=== PATIENT | male | born 1945 | race Caucasian/White ===

== ENCOUNTER → 2016-12-07 | Outpatient (CLI) | payer OTHER ==
--- NOTE | 2016-12-07 14:15 | RAD ---
Ventilation/perfusion lung scan, 12/07/2016: History: Dyspnea The ventilation study was performed utilizing 9 mCi of xenon-133. Activity within the lungs is mildly heterogeneous. There is good washout of the xenon from the lungs. Perfusion images were then obtained following IV injection of 5.5 mCi of technetium 99m MAA. A similar pattern of activity is present in the lungs. No significant unmatched or segmental perfusion defects are seen. IMPRESSION: There are no VQ findings to suggest pulmonary emboli. .
--- NOTE | 2016-12-07 14:18 | RAD ---
Chest, 2 views, 12/07/2016: History: Dyspnea There has been a previous median sternotomy. A left-sided transvenous pacemaker is in place with a single lead extending into the right ventricle. The heart is at the upper limits of normal in size. There is tortuosity of the thoracic aorta. A linear parenchymal opacity in the right upper lobe is probably a scar. Pleural thickening over the left apex is also probably due to scarring. No pulmonary consolidation is seen. There is no evidence of pleural fluid. Several lower thoracic vertebral compression fractures are noted, of indeterminate ages. There are mild scattered spurs in the spine. IMPRESSION: 1. Borderline cardiomegaly. 2. Bilateral apical pleural-parenchymal scarring. 3. Lower thoracic vertebral compression fractures of indeterminate ages.
== END | disposition home or self-care (01) ==
LOC: NM 12:14
PROVIDERS: ATTEND Internal Medicine
DX: I11.0 Hypertensive heart disease with heart failure (principal); Z95.0 Presence of cardiac pacemaker; R06.00 Dyspnea, unspecified
CPT/HCPCS: 71020; 78582; 96374; A9540; A9558

== ENCOUNTER 2020-10-14 11:37 | Inpatient (IN) | payer OTHER ==
[~2020-10-14] VITALS: Ht 167.6 cm; Wt 80.1 kg
--- NOTE | 2020-10-14 11:53 | PHYS DOC ---
Past History Past Medical History Heart failure, folate deficiency, thrombocytopenia, diabetes mellitus, hyperlipidemia, cataracts, atherosclerosis, A. fib, carotid artery stenosis, dyspepsia, osteoporosis, chronic kidney disease stage III, peripheral vascular disease. Past Surgical History: Coronary Bypass Surgery, Pacemaker Alcohol Use: None Drug Use: None General Adult EDM: Chief Complaint: MECHANICAL FALL HPI: HPI: This is a pleasant 75-year-old male who is on warfarin who presents emergency department after leaning over to reach for his urinary catheter when he fell and hit the left frontal part of his head. They were unsure if he lost consciousness. He denies chest pain but does have a headache. He denies vomiting fevers or chills. He denies slurred speech, facial droop, or numbness weakness or tingling. He denies any other injuries. He has a history of a CABG and a pacemaker placement. He denies any injury to his arms or legs. He denies hip pain. He denies difficulty breathing or shortness of breath. He has a chronic cough and is on baseline oxygen levels about 4 L/min. Review of systems negative for neck pain nuchal rigidity back pain focal neurologic deficit. Positive for headache. Negative for chest pain shortness of breath. All other review of systems negative. ED course: 75-year-old male presenting after head injury on Coumadin. On arrival the patient is mildly hypotensive however paramedics report that this is the patient's baseline blood pressure. The patient is not tachycardic. He is well-appearing and opens his eyes spontaneously he is alert with a normal neurologic exam. CBC shows a mild anemia of 10. White blood cell count within normal limits. Chemistry panel shows a creatinine of 4.1 which is increased from the patient's baseline. Troponin within normal limits. INR of 1.6. Urinalysis shows nitrites. IV Zosyn given for treatment of UTI. Patient clinically is volume overloaded. We will begin IV diuresis. I spoke with both the hospitalist at [facility] and [facility]. It was decided that [facility] would be able to care for the patient because the patient is not acidotic and not hyperkalemic. We will initiate diuresis and if unsuccessful we can transfer to [facility] for nephrology consultation. I spoke to Dr. Mcnally who accepts patient for admission. Physical Exam: PE: Constitutional: Well developed, well nourished, no acute distress, non-toxic appearance. [] HENT: Normocephalic, patient has an abrasion to the anterior forehead with an area of swelling. No laceration. No palpable depressed skull fracture., bilateral external ears normal, oropharynx moist, no oral exudates, nose normal. [] Eyes: PERRLA, EOMI, conjunctiva normal, no discharge. [] Neck: Normal range of motion, no tenderness, supple, no stridor. [] No midline tenderness. Back: Nontender midline. No abrasions lacerations or ecchymosis. No step-offs. Cardiovascular:Heart rate regular rhythm, no murmur [] Lungs & Thorax: Bilateral breath sounds clear to auscultation [] atraumatic. No crepitus. Abdomen: Bowel sounds normal, soft, no tenderness, no masses, no pulsatile masses. [] Skin: Warm, dry, no erythema, no rash. [] Back: No tenderness, no CVA tenderness. [] Extremities: No tenderness, no cyanosis, no clubbing, ROM intact, no edema. Neurovascular intact. Palpable pulse. 2-second cap refill. Normal range of motion of the joints. Neurologic: Mental status: Awake oriented and alert x3 Cranial nerves: Extraocular movements intact, eyebrows yvonne bilaterally, smile symmetric, uvula elevation nl, shoulder shrug intact bilaterally, tongue protrusion normal Clear speech. no drift. Sensation: equal and normal in all extremities Strength: 5/5 in upper and lower extremities bilaterally Psychologic: Affect normal, judgement normal, mood normal. [] EKG: EKG: [] EKG reviewed by myself shows a paced rhythm with repolarization. Negative scarbosa. Radiology/Procedures: Radiology/Procedures: [] Heart Score: Risk Factors: Risk Factors: DM, Current or recent (<one month) smoker, HTN, HLP, family history of CAD, obesity. Risk Scores: Score 0 - 3: 2.5% MACE over next 6 weeks - Discharge Home Score 4 - 6: 20.3% MACE over next 6 weeks - Admit for Clinical Observation Score 7 - 10: 72.7% MACE over next 6 weeks - Early Invasive Strategies Course & Med Decision Making: Course & Med Decision Making Pertinent Labs and Imaging studies reviewed. (See chart for details) [] Dragon Disclaimer: Dragon Disclaimer: This electronic medical record was generated, in whole or in part, using a voice recognition dictation system. Departure Departure: Impression: Primary Impression: Fall Additional Impressions: Head trauma Cardiorenal syndrome [id number] kidney injury Volume overload Disposition: ADMITTED INPT THIS HOSP Admitting Physician: Danilo Mcnally Condition: GUARDED Referrals: TIFFANY ANDRE (PCP) Critical Care Time Critical care time spent was 45 minutes exclusive of procedures. Time was spent evaluating the patient, ordering the administration of medications, reevaluating the patient, discussing with the admitting provider and documenting. GABY REINA MD Oct 14, 2020 11:53
--- NOTE | 2020-10-14 12:42 | RAD ---
XR CHEST 1V 10/14/2020 12:12 PM INDICATION: Fall COMPARISON: 12/07/2016 TECHNIQUE: Portable frontal view of the chest is provided. FINDINGS: The cardiomediastinal silhouette is similar in appearance. Left chest wall cardiac device is identifi ed with leads projecting over the right ventricle. Median sternotomy changes are present. Trace right pleural effusion with adjacent compressive atelectasis versus infiltrate. Mild pulmonary vascular congestion. No pneumothorax. No suspicious osseous abnormality. IMPRESSION: Increase in trace right pleural effusion and mild pulmonary vascular congestion as may be seen with c ongestive heart failure. Cardiomegaly may be associated with cardiomyopathy versus pericardial effusi on. Electronically signed by: Iliana Peralta MD (10/14/2020 12:40 PM) HEMA
--- NOTE | 2020-10-14 12:50 | RAD ---
PQRS Compliance Statement: One or more of the following individualized dose reduction techniques were utilized for this examinat ion: 1. Automated exposure control 2. Adjustment of the mA and/or kV according to patient size 3. Use of iterative reconstruction technique CT head and cervical spine without contrast 10/14/2020 12:12 PM INDICATION: Head trauma COMPARISON: None available TECHNIQUE: Multiple axial CT images of the head were obtained from skull base through the vertex with out intravenous contrast. Multiple axial CT images of the cervical spine were obtained without intrav enous contrast. Coronal and sagittal reformats are provided. FINDINGS: Head: Evaluation degraded by motion artifact. Ventricles, sulci and basal cisterns are prominent compatible with generalized cerebral volume loss. Low-attenuation in the periventricular white matter is suggestive of chronic small vessel ischemic ch anges. There is no hydrocephalus. Dumont-white matter differentiation is normal. There is no acute intr acranial hemorrhage. There is no mass, mass effect or midline shift. Posterior fossa is normal in taryn earance. Visualized portions of the orbits are normal. Air-fluid level identified within the right sphenoid si nus. Mastoid air cells are well aerated. Scalp and calvaria are normal. Cervical spine: Evaluation degraded by motion artifact. Alignment of the cervical spine is normal. Skull base is intact. Craniocervical junction is normal in appearance. Atlantoaxial articulation is normal. Vertebral body heights are maintained without evidence for acute fracture. There is moderate disc height loss at C5-C6 and C6-C7. C6-C7, there is a posterior disc osteophyte co mplex resulting in mild spinal canal stenosis. There is no prevertebral soft tissue swelling. Thyroid gland is normal in appearance. There is right apical pleural parenchymal scarring. Interstitial changes identified the lung apices. There may be a tiny loculated pneumothorax along the medial right upper lobe, although motion artifact could result in superimposition of the trachea this region. IMPRESSION: Evaluation of the head and cervical spine limited by motion artifact. 1. No acute intracranial hemorrhage. Mild generalized cerebral volume loss. Low-attenuation in the pe riventricular white matter is suggestive of chronic small vessel ischemic changes. 2. Given limitations of motion artifact, now acute fracture or malalignment of the cervical spine. Mi ld cervical spondylosis. 3. There is right apical pleural parenchymal scarring. Interstitial changes identified the lung apice s. There may be a tiny loculated pneumothorax along the medial right upper lobe, although motion breonna fact could result in superimposition of the trachea this region. 4. Air-fluid level identified within the right sphenoid sinus. Correlate with any signs and symptoms of sinusitis. Electronically signed by: Iliana Peralta MD (10/14/2020 12:48 PM) [place] [facility]
--- NOTE | 2020-10-14 13:00 | RAD ---
Pelvis single view INDICATION: Fall COMPARISON: None. FINDINGS: Intact pelvic ring. No acute fracture or hip dislocation is apparent. There is surgical material proj ecting over the left lower pelvic soft tissues suggesting previous hernia repair. Arteriovascular colton cifications are also noted. IMPRESSION: No fracture or dislocation in the pelvis or hips on single view pelvis. Electronically signed by: Efrain Thomas MD (10/14/2020 12:57 PM) [id number]
--- NOTE | 2020-10-14 13:12 | EKG ---
[facility] ED [facility] [address] [place] [id number] Test Date: 2020-10-14 Test Time: 11:54:03 Pat Name: SANDY MARTINEZ Department: Room: Gender: M Solution Mixer: : 1945 Requested By: GABY REINA Order Number: [id number] Reading MD: Slade Baumann Measurements Intervals [place] Rate: 70 P: MI: QRS: 265 QRSD: 232 T: 101 QT: 480 QTc: 522 Interpretive Statements VENTRICULAR PACED RHYTHM Electronically Signed On 10-17-2020 10:16:39 WOOD FILLER by Slade Baumann
[2020-10-14 13:22] LABS: BASO # 0.1 x10^3/uL (0.0-0.2); BASO % 1 % (0-3); EOS # 0.1 x10^3/uL (0.0-0.7); EOS % 1 % (0-3); HEMOGLOBIN 10.1 g/dL (13.0-17.5); LYMPH # 1.4 x10^3/uL (1.0-4.8); LYMPH % 19 % (24-48); MEAN CORPUSCULAR HEMOGLOBIN 25 pg (25-35); MEAN CORPUSCULAR HGB CONC 31 g/dL (31-37); MEAN CORPUSCULAR VOLUME 83 fL (79-100); MONO # 0.7 x10^3/uL (0.0-1.1); MONO % 9 % (0-9); NEUT # 5.3 x10^3uL (1.8-7.7); NEUT % 70 % (31-73); PLATELET COUNT 62 x10^3/uL (140-400); RED BLOOD COUNT 3.95 x10^6/uL (4.30-5.70); RED CELL DISTRIBUTION WIDTH 26.2 % (11.5-14.5); WHITE BLOOD COUNT 7.5 x10^3/uL (4.0-11.0)
[2020-10-14 13:32] LABS: CALCIUM 8.3 mg/dL (8.5-10.1); CREATININE 4.1 mg/dL (0.7-1.3); GFR 14.3
[2020-10-14 13:37] LABS: ALBUMIN 2.8 g/dL (3.4-5.0); DIRECT BILIRUBIN 0.2 mg/dL (0.0-0.2); TOTAL BILIRUBIN 0.5 mg/dL (0.2-1.0)
[2020-10-14 16:14] LABS: BILIRUBIN,URINE NEG (NEG); CLARITY,URINE HAZY; COLOR,URINE YELLOW; GLUCOSE,URINE NEG (NEG); NITRITE,URINE POS (NEG); UROBILINOGEN,URINE 0.2 mg/dL (0.2 mg/dL)
[2020-10-14 16:15] LABS: BACTERIA,URINE MANY /HPF (0-FEW); RBC,URINE TNTC /HPF (0-2); SQUAMOUS EPITHELIAL CELL,UR FEW /LPF
[2020-10-14] MEDS: FUROSEMIDE INJ 100 MG in IV NORMAL SALINE 100ML 90 ML IV PRN (17:09)
[2020-10-14] MEDS ORDERED: PIPERACILLIN/TAZOBACTAM 3.375 GM in IV NORMAL SALINE 50ML 50 ML IV ONE (18:00)
[2020-10-14] MEDS ORDERED: PIPERACILLIN/TAZOBACTAM 3.375 GM VIAL IV ONE (18:44)
[2020-10-14] MEDS ORDERED: IV NORMAL SALINE 50ML 50 ML ONE (18:44)
[2020-10-14 20:16] LABS: ANISOCYTOSIS SLIGHT; PLT ESTIMATE DECREASED (ADEQUATE)
[2020-10-14 20:17] LABS: PLATELET CLUMP PRESENT; POIKILOCYTOSIS SLIGHT
--- NOTE | 2020-10-14 21:31 | HP ---
ADMIT DATE: 10/14/2020 ATTENDING PHYSICIAN: Dr. Braswell. SUBJECTIVE: Fall and weakness. HISTORY OF PRESENT ILLNESS: The patient is a 75-year-old gentleman who has multiple medical issues. He normally doctors at the OR. He states that he has a physician ____. He presented to the ED. He fell leaning over, trying to get his urinary catheter. He bumped the front of his head. He is on Coumadin. He had a negative CT head without any bleeding. There is a longstanding history of coronary artery disease and permanent pacemaker. He has chronic kidney disease stage 5, with a creatinine of 4.1 mg percent. He is volume overloaded. He has peripheral edema extending all the way up to his thighs and his chest x-ray shows vascular congestion. There is a right pleural effusion, pulmonary vascular congestion, and cardiomegaly. They tried contacting the floor sweeper at [facility]. They did not feel he needed dialysis just yet. They contact me for admission. He will be in the ICU with attempt of Lasix drip to try to diurese him. PAST MEDICAL HISTORY: Significant for congestive heart failure, coronary artery disease, coronary artery bypass graft, chronic alcoholism, thrombocytopenia, type 2 diabetes, arterial sclerosis, paroxysmal atrial fibrillation, carotid artery stenosis, gastroesophageal reflux disease, and peripheral vascular disease. PAST SURGICAL HISTORY: CABG and permanent pacemaker, exact anatomy is unclear. He has very little insight. MEDICATIONS: Current medicines are reviewed. He was taking Coumadin. I am in the process of obtaining other medications. I do not have records from the [facility] Hospital at this time. SOCIAL HISTORY: He is a nonsmoker. He used to drink heavily. He is not drinking actively now. FAMILY HISTORY: Unobtainable. REVIEW OF SYSTEMS: Significant for the pedal edema. He has urinary retention. He has generalized debility and no COVID exposure. All other systems reviewed and determined negative. He denied any pruritus or nausea. He is chronically short of breath. PHYSICAL EXAMINATION: GENERAL: When I saw him, this is a chronically ill-appearing gentleman. INITIAL VITAL SIGNS: Showed a blood pressure 105/51, pulse is 70 and regular, temperature 97.5 degrees Fahrenheit, oxygen saturation 98% on 2 liters of nasal cannula. HEENT: Head is without trauma. Pupils are reactive. Sclerae nonicteric. Oropharynx is clear. NECK: Supple, no bruits. LUNGS: Bibasilar rales. CARDIOVASCULAR: Showed distant heart tones. No rubs, no gallops. ABDOMEN: Obese, protuberant. No organomegaly. EXTREMITIES: Showed 4+ pitting edema extending all the way up to his thighs. There is some skin breakthrough and serous drainage. SKIN: Otherwise, lower extremity as noted with some open sores and covered. No active infection identified. PERTINENT LABORATORY STUDIES: His baseline creatinine is 4.1 mg/dL, BUN 53. Anion gap is adequate, potassium 4.0 mEq. Cardiac enzymes negative for coronary ischemia. Hemoglobin is 10.1 g/dL with a white count of 7500. ASSESSMENT: 1. A 75-year-old gentleman with acute on chronic congestive heart failure. 2. Anasarca from volume overload. 3. Chronic kidney disease stage 5. 4. Known coronary artery disease with bypass graft. 5. Recent debilitation and fall. 6. Hemorrhagic stroke ruled out. 7. Chronic anticoagulation. 8. Generalized debilitation. PLAN: 1. Admit to the ICU. He remains a FULL CODE. 2. I will order a Lasix drip to help with diuresis. 3. Daily weights. 4. Fluid restriction. 5. I will hold his Coumadin for now. 6. Serial chemistries. 7. I shall ascertain his code status. 8. I am in the process of finding out exact medication and social issues for management. LOR BRASWELL MD DR: VALENTIN/alok JOB#: [id number] / [id number]
--- NOTE | 2020-10-14 21:45 | NUR ---
The patient, SANDY MARTINEZ, 75 y/o, M admitted by LOR BRASWELL MD, was given written information regarding hospital policies, unit procedures and contact persons. Valuables were checked and logged. Call light at bedside. Will continue to monitor.
[2020-10-14 22:11] VITALS: BP 93/51
[2020-10-14 23:13] VITALS: BP 84/49
--- NOTE | 2020-10-14 23:17 | NUR ---
Notified MD about low bp and no new orders ordered. Labs x 3 days ordered. Tramadol for pain. Will continue to monitor.
[2020-10-14] MEDS ORDERED: traMADol 50 MG TABLET PO PRN (23:30)
[2020-10-15] VITALS (24 sets, daily range): BP systolic 74–115; BP diastolic 41–64
[2020-10-15] MEDS: FUROSEMIDE INJ 100 MG in IV NORMAL SALINE 100ML 90 ML IV PRN ×3 (01:35→23:00)
--- NOTE | 2020-10-15 02:26 | NUR ---
Pt is in a cardiac chair. Pt states, "I feel much better." Call light by pt. Will continue to monitor.
[2020-10-15] MEDS ORDERED: ASPI-630 PO (03:04)
[2020-10-15] MEDS ORDERED: LISI2.5T PO (03:04)
[2020-10-15] MEDS ORDERED: BENZ1LOZ48 MM (03:04)
[2020-10-15] MEDS ORDERED: METO-239 PO (03:04)
[2020-10-15] MEDS ORDERED: MENT200L TP (03:04)
[2020-10-15] MEDS ORDERED: AMIO200T6 PO (03:04)
[2020-10-15] MEDS ORDERED: CETI10TA16 PO (03:04)
[2020-10-15] MEDS ORDERED: DIGO125T17 PO (03:04)
[2020-10-15] MEDS ORDERED: FERR325T14 PO (03:04)
[2020-10-15] MEDS ORDERED: ACET325T21 PO (03:04)
[2020-10-15] MEDS ORDERED: PREG75CA PO (03:48)
[2020-10-15] MEDS ORDERED: TIOT18CA IH (03:48)
[2020-10-15] MEDS ORDERED: NITR0.3T5 SL (03:48)
[2020-10-15] MEDS ORDERED: OMEP20CA16 PO (03:48)
[2020-10-15] MEDS ORDERED: CRESTOR40 MG PO (03:48)
[2020-10-15] MEDS ORDERED: MIRT7.5T8 PO (03:48)
[2020-10-15] MEDS ORDERED: ALBU2.5V8 INH (03:48)
[2020-10-15] MEDS ORDERED: TORS20TA2 PO (04:31)
[2020-10-15] MEDS ORDERED: TRAM50TA PO (04:31)
[2020-10-15] MEDS ORDERED: WARF1TAB69 PO (04:31)
[2020-10-15] MEDS ORDERED: ONDA4TAB7 PO (04:31)
[2020-10-15] MEDS ORDERED: BUDE10.2 IH (04:31)
[2020-10-15] MEDS ORDERED: PECT2.8L3 MM (04:31)
[2020-10-15] MEDS ORDERED: CHOL500021 PO (04:31)
[2020-10-15 07:03] LABS: ALBUMIN 2.8 g/dL (3.4-5.0); ALBUMIN/GLOBULIN RATIO 0.7 (1.0-1.7); CALCIUM 8.5 mg/dL (8.5-10.1); CREATININE 4.3 mg/dL (0.7-1.3); GFR 13.5; POTASSIUM 4.1 mmol/L (3.5-5.1); TOTAL BILIRUBIN 0.4 mg/dL (0.2-1.0); TOTAL PROTEIN 7.1 g/dL (6.4-8.2)
[2020-10-15 07:08] LABS: BASO # 0.1 x10^3/uL (0.0-0.2); BASO % 1 % (0-3); EOS # 0.1 x10^3/uL (0.0-0.7); EOS % 1 % (0-3); HEMATOCRIT 34.9 % (39.0-53.0); HEMOGLOBIN 10.5 g/dL (13.0-17.5); LYMPH # 1.6 x10^3/uL (1.0-4.8); LYMPH % 21 % (24-48); MEAN CORPUSCULAR HEMOGLOBIN 26 pg (25-35); MEAN CORPUSCULAR HGB CONC 30 g/dL (31-37); MEAN CORPUSCULAR VOLUME 85 fL (79-100); MONO # 0.8 x10^3/uL (0.0-1.1); MONO % 10 % (0-9); NEUT # 5.3 x10^3uL (1.8-7.7); NEUT % 67 % (31-73); PLATELET COUNT 60 x10^3/uL (140-400); RED BLOOD COUNT 4.12 x10^6/uL (4.30-5.70); RED CELL DISTRIBUTION WIDTH 26.1 % (11.5-14.5); WHITE BLOOD COUNT 7.9 x10^3/uL (4.0-11.0)
--- NOTE | 2020-10-15 09:10 | PN ---
DATE: 10/15/2020 ATTENDING PHYSICIAN: Dr. Braswell. SUBJECTIVE: He is dyspneic with minimal exertion. He has a knot on the left side of the neck, various achiness. He is still edematous, marginal urine output with the Lasix drip. Unfortunately, the gentleman has very little insight into his underlying condition. He is from a local correction. OBJECTIVE FINDINGS: VITAL SIGNS: Creatinine is slightly elevated today at 4.3 mg/dL from 4.1, blood pressure today is 83/50 mmHg, pulse 70 and regular, oxygen saturation 100% on 3 liters by nasal cannula. He is afebrile. HEENT: Head is without trauma. Pupils are reactive. Sclerae nonicteric. NECK: Supple. No stridor. He has some minimal torticollis on the left. LUNGS: Bibasilar rales. CARDIOVASCULAR: Showed regular heart tones. No rubs. ABDOMEN: Obese, protuberant. EXTREMITIES: Show 4+ edema extending up to his thighs. Hernandez catheter is in place. SKIN: Some weepage and breakage of his lower extremities. LABORATORY DATA: Potassium is 4.1 mEq, BUN 55. The anion gap is 9. Creatinine is up to 4.3 mg/dL, nonfasting blood sugar 124 mg/dL. Hemoglobin maintained at 10.5 g/dL with a white count of 7900. ASSESSMENT: 1. A 75-year-old gentleman [facility] patient with [id number] congestive heart failure. 2. Anasarca due to volume overload. 3. Chronic kidney disease stage 5. 4. Hypotension due to ischemic cardiomyopathy. 5. Known coronary artery disease. 6. Recent debilitation and fall. 7. Chronic anticoagulation. 8. Hemorrhagic stroke ruled out. 9. Generalized debilitation. PLAN: 1. Continue Lasix drip this weekend. 2. I had a long discussion with him. He has little insight. He is a [facility] patient. I do not think he has had a significant primary care health bouncing around from the [place] to the correction. He wants everything done. I explained to him he will probably need a transfer to a higher level of care, larger facility for placement of a Vascath and initiation of dialysis. I will try to contact the [facility] team the first thing Saturday morning. In the meantime, this weekend, we will keep him here and continue the Lasix drip, symptomatic treatment, and serial chemistries. LOR BRASWELL MD DR: VALENTIN/alok JOB#: [id number] / [id number]
[2020-10-15] MEDS: AMIODARONE HCL 200 MG TABLET. PO SCH (11:00)
[2020-10-15] MEDS: METOPROLOL SUCC 24HR ER 25 MG TAB.ER.24H. PO SCH (11:00)
[2020-10-15] MEDS: ASPIRIN CHEWABLE 81 MG TABLET. PO SCH (11:00)
[2020-10-15] MEDS: PREGABALIN 75 MG CAPSULE PO SCH ×2 (14:34→20:51)
--- NOTE | 2020-10-15 17:41 | NUR ---
Paged Dr. Mcnally regarding patient's blood pressure and the continuation of hypotension throughout the day. Received orders to start Dopamine drip to maintain SBP >90. Will start another Peripheral IV and start drip. Will continue to critically monitor.
[2020-10-16] VITALS (20 sets, daily range): BP systolic 89–157; BP diastolic 45–104
[2020-10-16 06:55] LABS: BASO # 0.1 x10^3/uL (0.0-0.2); BASO % 1 % (0-3); EOS # 0.1 x10^3/uL (0.0-0.7); EOS % 1 % (0-3); LYMPH # 1.4 x10^3/uL (1.0-4.8); LYMPH % 14 % (24-48); MEAN CORPUSCULAR HEMOGLOBIN 26 pg (25-35); MEAN CORPUSCULAR HGB CONC 31 g/dL (31-37); MEAN CORPUSCULAR VOLUME 83 fL (79-100); MONO # 0.9 x10^3/uL (0.0-1.1); MONO % 9 % (0-9); NEUT # 7.2 x10^3uL (1.8-7.7); NEUT % 75 % (31-73); PLATELET COUNT 105 x10^3/uL (140-400); RED BLOOD COUNT 4.69 x10^6/uL (4.30-5.70); RED CELL DISTRIBUTION WIDTH 25.7 % (11.5-14.5); WHITE BLOOD COUNT 9.7 x10^3/uL (4.0-11.0)
[2020-10-16 06:57] LABS: CALCIUM 9.5 mg/dL (8.5-10.1); CREATININE 4.4 mg/dL (0.7-1.3); GFR 13.2; POTASSIUM 4.1 mmol/L (3.5-5.1)
[2020-10-16] MEDS ORDERED: MAGNESIUM CITRATE 296 ML SOLUTION. PO ONE (08:00)
[2020-10-16] MEDS ORDERED: FUROSEMIDE 100 MG/10 ML VIAL IVP ONE (08:15)
[2020-10-16] MEDS: ASPIRIN CHEWABLE 81 MG TABLET. PO SCH (08:24)
[2020-10-16] MEDS: PREGABALIN 75 MG CAPSULE PO SCH ×3 (08:25→20:46)
[2020-10-16] MEDS: AMIODARONE HCL 200 MG TABLET. PO SCH (08:25)
[2020-10-16] MEDS: METOPROLOL SUCC 24HR ER 25 MG TAB.ER.24H. PO SCH (08:38)
--- NOTE | 2020-10-16 09:52 | PN ---
DATE: 10/16/2020 ATTENDING PHYSICIAN: Dr. Braswell. SUBJECTIVE: He is alert. He has no new complaints. He has various somatic complaints. Unfortunately, he is frustrated as he has little insight into what is going on. He did understand what dialysis was, as I explained that to him in great detail. Yesterday, his blood pressure was marginal. I was called by the nursing dispatch supervisor who requested dopamine. I felt this is reasonable. A line was placed. He is up to 7 mcg/kg/min. The blood pressure is about 100 systolic, mean arterial pressures up a bit. OBJECTIVE FINDINGS: VITAL SIGNS: Blood pressure this morning is still marginal between 87 and 111 mmHg. His pulse is 92 and regular. He is afebrile. Oxygen saturation 98% on 2 liters by nasal cannula. HEENT: Head is without trauma. Pupils are reactive. Sclerae are nonicteric. Oropharynx is clear. NECK: Supple. LUNGS: He still has bibasilar rales. CARDIOVASCULAR: Showed distant heart tones. No gallops, no rubs. Peripheral pulses are palpable and full. ABDOMEN: Obese, protuberant. No organomegaly. Bowel sounds were hypoactive. EXTREMITIES: Showed an improvement and decline down to 3+ edema. The swelling is less pronounced. SKIN: Otherwise warm and dry. NEUROLOGIC: He is intact. He has no deficits. PERTINENT LABORATORY DATA: The creatinine on admission was 4.1 mg/dL, yesterday 4.3, today is up to 4.4 mg/dL. BUN is 53. Potassium is 4.1 mEq. ASSESSMENT: 1. A 75-year-old gentleman with acute on chronic congestive heart failure. 2. Anasarca due to volume overload. 3. Chronic kidney disease, stage 5. 4. Hypotension due to ischemic cardiomyopathy. 5. Known coronary artery disease. 6. Recent debilitation and fall. 7. Chronic anticoagulation. 8. Hemorrhagic stroke, ruled out. 9. Generalized debilitation. PLAN: 1. We shall stop the Lasix drip, as there was not doing much. 2. Continue dopamine. 3. Tomorrow morning, I shall contact the control chemist at [facility] to see what their recommendations are, whether he would be a candidate for dialysis. He will need ____ for access. If they will take him, I will ask Dr. Beniot to admit him at [facility]. LOR BRASWELL MD DR: VALENTIN/alok JOB#: [id number] / [id number]
[2020-10-16] MEDS: oxyCODONE/APAP 7.5/325 1 TAB TABLET PO PRN (11:45)
[2020-10-17] VITALS (7 sets, daily range): BP systolic 95–116; BP diastolic 48–64
[2020-10-17] MEDS: METOPROLOL SUCC 24HR ER 25 MG TAB.ER.24H. PO SCH (09:00)
[2020-10-17] MEDS: oxyCODONE/APAP 7.5/325 1 TAB TABLET PO PRN (10:19)
[2020-10-17] MEDS: ASPIRIN CHEWABLE 81 MG TABLET. PO SCH (10:20)
[2020-10-17] MEDS: PREGABALIN 75 MG CAPSULE PO SCH (10:20)
[2020-10-17] MEDS: AMIODARONE HCL 200 MG TABLET. PO SCH (10:21)
--- NOTE | 2020-10-17 11:59 | DS ---
DATE OF DISCHARGE: 10/17/2020 ATTENDING PHYSICIAN: Dr. Braswell. FINAL DISCHARGE DIAGNOSES: 1. Acute on chronic congestive heart failure, systolic. 2. Acute on chronic kidney failure, chronic kidney disease, stage 5. 3. Anasarca due to volume overload. 4. Recent debility and fall. 5. Chronic anticoagulation. 6. 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 7. Generalized debilitation. HISTORY AND PHYSICAL: This 75-year-old gentleman has heart failure and renal failure. [facility]. He was referred here. He was admitted to the ED with increasing shortness of breath, recent fall, evidence of heart failure and chronic kidney disease. PHYSICAL EXAMINATION: Please see my dictated note. PERTINENT LABORATORY AND X-RAY STUDIES: Admission hemoglobin was 12.0 g/dL, white count 5700. Subsequent creatinines were drawn. Admission creatinine 4.1 mg/dL. the next day it was up to 4.3 and then 4.4 mg/dL, potassium is 4.1 mEq per liter, BUN 53. Transaminases were normal. Head CT on admission showed no acute strokes or hemorrhages. COURSE IN THE HOSPITAL: The patient was admitted to the medical floor. He was started on Lasix drips with minimal urine output. We did initiate some dopamine from low blood pressures. Antihypertensives were held. He has slightly better urine output. Initially, the patient had wanted everything done including having dialysis catheter placed for treatment as it turned out, he was not aware of all of this, they have set him up for hospice. He has been deemed not to be a dialysis candidate. He now understands this and requested to go for comfort measures. Arrangements were done on the fourth hospital day for him to go to the [facility] with hospice care. We stopped his dopamine. We kept the Hernandez catheter in for comfort. Therefore, on the fourth hospital day, the patient is now made a DNR. He will continue his aspirin, albuterol, amiodarone, metoprolol, multivitamin, omeprazole, Spiriva, and Ultram, dose is unchanged. Because of the situation, I did stop his cetirizine, cholecalciferol, Digitalis, ferrous sulfate, lisinopril, Lyrica, ondansetron, pectin, torsemide and Coumadin dose as well as his Crestor. He is now a DNR. His prognosis is terminal. He was discharged then from our hospital in stable condition with comfort measures through the correction and hospice. Total discharge time spent is 41 minutes. LOR BRASWELL MD DR: VALENTIN/alok JOB#: [id number] / [id number] [place], [place]
--- NOTE | 2020-10-17 13:25 | NUR ---
Patient was presented with his current state of health issues and was counseled by Destiny Perez RN in reference to his options for his plan of care. Patient made a decision to go on hospice rather than seek aggressive treatment, therefore patient was discharged back to his previous residence which was [facility]. Patient left the unit via EMS on a gurney. Patient discharge information packet was sent with EMS personnel. Patients only belongings he had was his cell phone which the patient took with him.
== END 2020-10-17 13:10 | disposition hospice, inpatient (51) | DRG 291 ==
LOC: ER 11:37 → ICU 16:05
PROVIDERS: ADMIT Hospitalist; ATTEND Hospitalist
DX: I13.2 Hypertensive heart and chronic kidney disease with heart failure and with stage 5 chronic kidney disease, or end stage renal disease (principal); I50.23 Acute on chronic systolic (congestive) heart failure; N17.9 Acute kidney failure, unspecified; N39.0 Urinary tract infection, site not specified; N18.5 Chronic kidney disease, stage 5; D64.9 Anemia, unspecified; E11.22 Type 2 diabetes mellitus with diabetic chronic kidney disease; E11.51 Type 2 diabetes mellitus with diabetic peripheral angiopathy without gangrene; E78.5 Hyperlipidemia, unspecified; I25.10 Atherosclerotic heart disease of native coronary artery without angina pectoris; I48.0 Paroxysmal atrial fibrillation; I25.5 Ischemic cardiomyopathy; M81.0 Age-related osteoporosis without current pathological fracture; S09.90XA Unspecified injury of head, initial encounter; Z51.5 Encounter for palliative care; Z66 Do not resuscitate; Z79.01 Long term (current) use of anticoagulants; Z79.82 Long term (current) use of aspirin; Z95.0 Presence of cardiac pacemaker; Z95.1 Presence of aortocoronary bypass graft; D69.6 Thrombocytopenia, unspecified; F10.20 Alcohol dependence, uncomplicated; K21.9 Gastro-esophageal reflux disease without esophagitis; Z20.822 Contact with and (suspected) exposure to COVID-19; W18.39XA Other fall on same level, initial encounter; Y93.89 Activity, other specified; Y92.89 Other specified places as the place of occurrence of the external cause; Y99.8 Other external cause status
CPT/HCPCS: 36415; 51702; 70450; 71045; 72125; 72170; 80048; 80053; 80076; 81001; 82947; 83690; 84484; 85025; 85610; 85730; 87077; 87086; 87186; 93005; 96365; 97163; J1265; J2543; U0003; 97110; 99291-25